=== PATIENT | female | born 1960 | race Caucasian/White ===

== ENCOUNTER 2018-05-20 02:33 | Emergency (ER) | payer MEDICARE ==
[2018-05-20 02:42] VITALS: TEMP 98.2
[2018-05-20 03:12] LABS: BASO % 0.3 % (0.0-2.0); EOS # 0.1 (0.0-0.7); EOS % 1.9 % (0-4.0); GRAN # 3.5 (1.4-6.5); GRAN % 50.6 % (42.2-75.2); HEMATOCRIT 41.6 % (37.0-47.0); HEMOGLOBIN 14.1 g/dl (12.5-16.0); LYMPH # 2.8 (1.2-3.4); MEAN CELL VOLUME 92 fl (80.0-100.0); MEAN CORPUSCULAR HEMOGLOBIN 31 pg (27.0-31.0); MEAN CORPUSCULAR HGB CONC 34 g/dl (33.0-37.0); MEAN PLATELET VOLUME 9.3 fl (7.4-10.4); MONO # 0.4 (0.1-0.6); MONO % 5.9 % (1.7-9.3); PLATELET COUNT 191 K/mm3 (130-400); RED BLOOD COUNT 4.53 M/mm3 (4.10-5.30)
[2018-05-20 03:28] LABS: C-REACTIVE PROTEIN 0.6 mg/dL (0.0-0.9); URIC ACID 6.8 mg/dL (2.5-6.2)
[2018-05-20] MEDS ORDERED: VOLTAREN 75 DR75 MG PO (03:40)
[2018-05-20 04:07] LABS: ALBUMIN 3.6 gm/dL (3.5-5.0); BILIRUBIN,TOTAL 0.4 mg/dL (0.0-1.0); CALCIUM 9.4 mg/dL (8.4-10.2); CREATININE, serum 0.79 mg/dL (0.52-1.25); POTASSIUM 4.2 mmol/L (3.4-5.0); TOTAL PROTEIN 7.3 gm/dL (6.4-8.2)
[2018-05-20] MEDS ORDERED: ULTRAM 50MG TAB50 MG PO (04:15)
[2018-05-20 04:50] VITALS: BP 106/86; PULSE 68
== END 2018-05-20 04:52 | disposition home or self-care (01) ==
LOC: COL.ER 02:33
PROVIDERS: Emergency Medicine
DX: M10.9 Gout, unspecified (principal); Z90.710 Acquired absence of both cervix and uterus; Z90.49 Acquired absence of other specified parts of digestive tract; Z98.84 Bariatric surgery status
CPT/HCPCS: J1885; J7512

== ENCOUNTER → 2020-04-11 | Outpatient (CLI) | payer MEDICARE ==
[~2020-04-11] MED LIST: ULTRAM 50MG TAB50 MG PO; VOLTAREN 75 DR75 MG PO
== END ==
LOC: COL.VAS 13:18
DX: R60.0 Localized edema (principal)

== ENCOUNTER → 2020-08-04 | Outpatient (CLI) | payer MEDICARE | LOC: COL.RAD | DX: K57.30 Diverticulosis of large intestine without perforation or abscess without bleeding (principal); I81 Portal vein thrombosis; Z90.710 Acquired absence of both cervix and uterus; Z90.49 Acquired absence of other specified parts of digestive tract | CPT/HCPCS: Q9967 ==

== ENCOUNTER 2020-10-11 07:01 | Day surgery (SDC) | payer MEDICARE ==
[~2020-10-11] VITALS: Ht 162.6 cm; Wt 118.8 kg
[2020-10-11] MEDS ORDERED: TOPROL XL 50MG50 MG PO (07:52)
[2020-10-11] MEDS ORDERED: IMITREX50 MG PO (07:54)
[2020-10-11] MEDS ORDERED: PROBIOTIC FORMU1 CAP PO (07:57)
[2020-10-11] MEDS ORDERED: VITAMINC1000TA PO (07:58)
[2020-10-11] MEDS ORDERED: XANAX .25M0.25 MG/TA PO (07:59)
[2020-10-11] MEDS ORDERED: NATURAL IRON65 MG PO (08:00)
[2020-10-11] MEDS ORDERED: FOLIC ACID800 MCG PO (08:02)
[2020-10-11] MEDS ORDERED: FISH OIL 500 M1 EAC1 PO (08:02)
[2020-10-11] MEDS ORDERED: TYLENOL 500MG500 MG PO (08:03)
[2020-10-11 08:10] VITALS: BP 121/88; PULSE 97; TEMP 97.9
[2020-10-11] MEDS ORDERED: PROTONIX 40MG T40 MG PO (09:03)
[2020-10-11 09:10] VITALS: BP 120/69; PULSE 77; TEMP 97.6
[2020-10-11 09:25] VITALS: BP 114/73; PULSE 77
--- NOTE | 2020-10-11 09:34 | NUR ---
0710 [place] [facility] [place]. STANDING WEIGHT OBTAINED. PATIENT AMBULATED TO BR, THEN TO BAY 3. CONSENT ONTAINED FOR UPPER GI ENDOSCOPY AND COLONOSCOPY. QUESTIONS INVITED AND ANSWERED. ASSESSMENT COMPLETE AND IV STARTED. TOLERATED WELL. 0910 TO [facility] [place] VIA CART. PATIENT AMBULATED TO CHAIR WITH SBA. GAIT A LITTLE UNSTEADY. VSS. PATIENT REQUESTED OJ AND BLUEBERRY MUFFIN. 0935 DR. CAMERON IN ROOM SPEAKING WITH PATIENT. PATIENT TOLERATED PO OJ AND BLUEBERRY MUFFIN. DENIES NEEDS.
[2020-10-11 09:40] VITALS: BP 123/73; PULSE 77
--- NOTE | 2020-10-11 10:09 | NUR ---
0945 VSS. PATIENT TOLERATES PO WELL. IV DISCONTIUED. TOLERATED WELL. D/C INSTRUCTIONS VERBAL AND WRITTEN GIVEN TO PATIENT. PATIENT VERBALIZED UNDERSTANDING. 1000 PATIENT DRESSED AND READY FOR DISCHARGE. WAITING FOR PATIENT'S DAUGHTER TO DRIVE HER HOME.
== END 2020-10-11 10:30 | disposition home or self-care (01) ==
LOC: SDCO 07:01
DX: K29.30 Chronic superficial gastritis without bleeding (principal); R19.7 Diarrhea, unspecified; K57.30 Diverticulosis of large intestine without perforation or abscess without bleeding; K64.0 First degree hemorrhoids; I10 Essential (primary) hypertension; G43.909 Migraine, unspecified, not intractable, without status migrainosus; G47.33 Obstructive sleep apnea (adult) (pediatric); J44.9 Chronic obstructive pulmonary disease, unspecified; Z98.84 Bariatric surgery status; Z90.710 Acquired absence of both cervix and uterus; Z96.651 Presence of right artificial knee joint; Z90.49 Acquired absence of other specified parts of digestive tract; Z88.5 Allergy status to narcotic agent; Z88.0 Allergy status to penicillin; Z20.828 Contact with and (suspected) exposure to other viral communicable diseases
CPT/HCPCS: J2704; J3010; J7120